=== PATIENT | female | born 1940 | race Caucasian/White ===

== ENCOUNTER 2017-02-05 06:40 | Inpatient (IN) | payer MEDICARE, OTHER ==
[~2017-02-05] VITALS: Ht 170.2 cm; Wt 62.9 kg
[~2017-02-05 06:40] MED LIST: ALEN70TA3 PO; CALC1CAP8 PO; CHOL2000 PO; CHOL200074 PO; CLOP75TA PO; GEMF600T3 PO; LEVO88TA2 PO; OMEP40CA6 PO; ONDA4TAB13 SL; SIMV10TA3 PO
[2017-02-05] MEDS ORDERED: BUPIVACAINE/PF-EPI 0.5% 1:200K ONE (07:07)
[2017-02-05 07:12] VITALS: BP 89/57
[2017-02-05] MEDS ORDERED: OMEP40CA6 PO (07:21)
[2017-02-05] MEDS: LACTATED RINGERS 1,000 ML IV SCH (07:24)
[2017-02-05] MEDS ORDERED: FENTANYL PF 500 MCG/10ML ONE (07:39)
[2017-02-05] MEDS ORDERED: HYDROmorphone 1 MG/ML, 1ML ONE (07:39)
[2017-02-05] MEDS ORDERED: ONDANSETRON 2MG/ML, 2ML IVPush PRN ×2 (08:30→09:00)
[2017-02-05] MEDS ORDERED: LABETALOL 5MG/ML, 20ML IV PRN (08:30)
[2017-02-05] MEDS ORDERED: HYDROmorphone 1 MG/ML, 1ML IV PRN (08:30)
[2017-02-05] MEDS ORDERED: MIDAZOLAM 1 MG/ML, 2ML IV PRN (08:30)
[2017-02-05] MEDS ORDERED: hydrALAzine 20 MG/ML, 1ML IV PRN (08:30)
[2017-02-05] MEDS ORDERED: OXYcodone 5 MG/5 ML ORAL.SOL UDC PO PRN (08:30)
[2017-02-05] MEDS ORDERED: LACTATED RINGERS 1,000 ML IV SCH (08:33)
[2017-02-05] MEDS ORDERED: SUGAMMADEX 200 MG/2 ML IVPush ONE (08:49)
[2017-02-05] MEDS ORDERED: HYDROcodone/APAP 5/325 TABLET PO PRN (09:00)
[2017-02-05] MEDS ORDERED: ACETAMINOPHEN 325 MG TABLET PO PRN (09:00)
[2017-02-05] MEDS ORDERED: hydrALAzine 20 MG/ML, 1ML IVPush PRN (09:00)
[2017-02-05] MEDS ORDERED: LORazepam 2 MG/ML, 1ML IVPush PRN (09:00)
[2017-02-05] MEDS ORDERED: ACETAMINOPHEN 650 MG SUPP PR PRN (09:00)
[2017-02-05] MEDS ORDERED: DIPHENHYDRAMINE 25 MG CAPSULE PO PRN (09:00)
[2017-02-05] MEDS ORDERED: LORazepam 1MG TABLET PO PRN (09:00)
[2017-02-05] MEDS: GEMFIBROZIL 600 MG TABLET PO SCH (09:00)
[2017-02-05] MEDS ORDERED: ENALAPRILAT 1.25 MG/ML, 2ML IVPush PRN (09:00)
[2017-02-05] MEDS ORDERED: FENTANYL PF 100 MCG/2ML ONE (09:05)
[2017-02-05] MEDS: FENTANYL PF 100 MCG/2ML IV PRN ×2 (09:05→09:16)
[2017-02-05] MEDS ORDERED: OXYcodone 5 MG/5 ML ORAL.SOL UDC ONE (09:05)
[2017-02-05] MEDS ORDERED: MORPHINE SULFATE 4 MG/ML, 1ML ONE (09:17)
[2017-02-05] MEDS: morphine SULFATE 10 MG/ML, 1ML IVPush PRN ×3 (09:18→12:48)
[2017-02-05] MEDS ORDERED: ALBUTEROL SULFATE 2.5 MG/3 ML ONE (09:42)
[2017-02-05] MEDS ORDERED: LORazepam 2 MG/ML, 1ML ONE (09:58)
[2017-02-05] MEDS ORDERED: ALBUTEROL SULFATE 2.5 MG/3 ML NPPB PRN (10:00)
[2017-02-05 13:48] VITALS: BP 76/36
[2017-02-05] MEDS: CEFAZOLIN PMX 1GM/50ML 50 ML IVPB SCH ×2 (14:35→23:10)
[2017-02-05 15:30] VITALS: BP 104/53
[2017-02-05] MEDS ORDERED: CEFAZOLIN 1,000 MG ONE (15:57)
[2017-02-05] MEDS ORDERED: GLYCOPYRROLATE 0.2MG/1ML ONE (15:57)
[2017-02-05] MEDS ORDERED: PROPOFOL 10 MG/ML, 20ML ONE (15:57)
[2017-02-05] MEDS ORDERED: SUCCINYLCHOLINE 20 MG/ML, 10ML ONE (15:57)
[2017-02-05] MEDS ORDERED: ONDANSETRON 2MG/ML, 2ML ONE (15:57)
[2017-02-05] MEDS ORDERED: ROCURONIUM 10 MG/ML ONE ×2 (15:57)
[2017-02-05] MEDS ORDERED: NEOSTIGMINE 1 MG/ML, 10ML ONE (15:57)
[2017-02-05] MEDS ORDERED: LACTATED RINGERS 500 ML IVBOLUS ONE (17:30)
[2017-02-05 19:04] VITALS: BP 101/56
[2017-02-05] MEDS ORDERED: OMEPRAZOLE 20 MG CAPSULE.DR PO SCH (21:00)
[2017-02-06 01:10] VITALS: BP 96/52
[2017-02-06 04:38] LABS: HEMATOCRIT 42.2 % (34.6-47.8); HEMOGLOBIN 13.7 g/dL (11.7-16.4); WHITE BLOOD COUNT 5.8 x10^3/uL (3.4-10)
[2017-02-06] MEDS ORDERED: LEVOTHYROXINE 88 MCG TABLET PO SCH (06:00)
[2017-02-06 06:38] VITALS: BP 94/50
[2017-02-06 06:50] LABS: BLOOD UREA NITROGEN 8 mg/dL (7-18)
[2017-02-06] MEDS: GEMFIBROZIL 600 MG TABLET PO SCH (08:22)
[2017-02-06] MEDS: LACTATED RINGERS 1,000 ML IV SCH (08:25)
[2017-02-06] MEDS ORDERED: ENOXAPARIN 40 MG/0.4 ML SQ SCH (09:00)
[2017-02-06 12:53] VITALS: BP 146/80
[2017-02-06] MEDS ORDERED: SODIUM CHLORIDE NASAL SPRAY 45ML BOTTLE NAS PRN (13:00)
== END 2017-02-06 17:04 | disposition home or self-care (01) | DRG 165 ==
LOC: ORIP 06:40 → 3NW 10:23
PROVIDERS: ADMIT Thoracic Surgery (Cardiothoracic Vascular Surgery); ATTEND Thoracic Surgery (Cardiothoracic Vascular Surgery)
PROC: 0BBD4ZZ Excision of Right Middle Lung Lobe, Percutaneous Endoscopic Approach (ICD-10-PCS; principal; 2017-02-05 09:00)
DX: C34.2 Malignant neoplasm of middle lobe, bronchus or lung (principal); J44.9 Chronic obstructive pulmonary disease, unspecified; F17.210 Nicotine dependence, cigarettes, uncomplicated; E89.0 Postprocedural hypothyroidism; Z90.49 Acquired absence of other specified parts of digestive tract; Z85.3 Personal history of malignant neoplasm of breast; Z92.3 Personal history of irradiation; Z90.10 Acquired absence of unspecified breast and nipple; Z88.8 Allergy status to other drugs, medicaments and biological substances; Z88.2 Allergy status to sulfonamides; Z88.0 Allergy status to penicillin; Z91.048 Other nonmedicinal substance allergy status
CPT/HCPCS: 36415; 71010; 80048; 85025; 88309; C1729; J0690; J1170; J1650; J2405; J2704; J2710; J3010; J3490; J7120; J7613; J0330; J2060; J2270

== ENCOUNTER → 2017-08-19 | Outpatient (CLI) | payer MEDICARE | END | disposition home or self-care (01) | LOC: RAD 09:34 | PROVIDERS: ATTEND Neurological Surgery | DX: M80.08XA Age-related osteoporosis with current pathological fracture, vertebra(e), initial encounter for fracture (principal) | CPT/HCPCS: 22515 ==

== ENCOUNTER 2017-08-29 07:04 | Day surgery (SDC) | payer MEDICARE ==
[~2017-08-29] VITALS: Ht 170.2 cm; Wt 51.6 kg
[2017-08-29] MEDS ORDERED: LIDOCAINE 1%, 20ML ONE ×2 (07:51→10:11)
[2017-08-29 08:13] VITALS: BP 111/69
[2017-08-29] MEDS ORDERED: SODIUM CHLORIDE 0.9% 1,000 ML IV SCH (08:15)
[2017-08-29] MEDS ORDERED: VANCOMYCIN PMX 1GM/200ML 200 ML IVPB ONE (08:30)
[2017-08-29] MEDS ORDERED: MIDAZOLAM 1 MG/ML, 5ML ONE (08:46)
[2017-08-29] MEDS ORDERED: FENTANYL PF 100 MCG/2ML ONE (08:46)
[2017-08-29] MEDS ORDERED: FLUMAZENIL 0.1 MG/1 ML, 5ML ONE (08:47)
[2017-08-29] MEDS ORDERED: NALOXONE 1 MG/ML, 2ML ONE (08:47)
[2017-08-29] MEDS ORDERED: VISIPAQUE 270 MG/ML, 50ML BOTTLE ONE ×2 (09:47→10:49)
== END 2017-08-29 13:55 ==
LOC: OUT 07:04
PROVIDERS: ATTEND Neurological Surgery
DX: M80.88XA Other osteoporosis with current pathological fracture, vertebra(e), initial encounter for fracture (principal)
CPT/HCPCS: 22513; 22514; 99156; 99157; C9359; J2250; J3010; J3370; J3490; J7030; Q9966; J2310

== ENCOUNTER → 2018-01-15 | Outpatient (CLI) | payer MEDICARE ==
[~2018-01-15] MED LIST changes: +OMNIPAQUE 350 MG/ML, 100ML BOTTLE ONE
== END | disposition home or self-care (01) ==
LOC: CFH 13:35
PROVIDERS: ATTEND Thoracic Surgery (Cardiothoracic Vascular Surgery)
DX: C34.2 Malignant neoplasm of middle lobe, bronchus or lung (principal); R91.8 Other nonspecific abnormal finding of lung field; M48.54XA Collapsed vertebra, not elsewhere classified, thoracic region, initial encounter for fracture; M85.88 Other specified disorders of bone density and structure, other site; I71.4 Abdominal aortic aneurysm, without rupture; M81.0 Age-related osteoporosis without current pathological fracture; K21.9 Gastro-esophageal reflux disease without esophagitis; F17.210 Nicotine dependence, cigarettes, uncomplicated; Z79.899 Other long term (current) drug therapy
CPT/HCPCS: 71260; Q9967; 82565